=== PATIENT | male | born 1990 | race Caucasian/White ===

== ENCOUNTER 2024-11-16 22:09 | Emergency (ER) | payer BC, SELFPAY ==
--- NOTE | ~2024-11-16 | XR_ITS ---
CLINICAL HISTORY: low back pain 3 views lumbar spine Comparison: None Findings: Normal vertebral body alignment. No acute fractures or dislocation. No significant degenerative change. IMPRESSION: No acute findings. This document has been electronically signed by: Lukas Coker MD, PHD on 11/16/2024 23:10:47
[2024-11-16 22:39] VITALS: BP 136/76; PULSE 77; RESP 18; TEMP 36.8; O2SAT 96; BMI 30.1
--- NOTE | 2024-11-16 22:39 | ED_ITS ---
HPI - Back Pain/Injury General Chief Complaint: Extremity Injury, Lower Stated Complaint: rt side lower back pain down the leg Time Seen by Provider: 11/16/24 22:55 Source: patient and family Mode of arrival: ambulatory Limitations: no limitations History of Present Illness ED Provider: Viviana Matias PA-C HPI Narrative: 34-year-old male presents with right-sided low back pain. 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 Over the past month, he has been having intermittent right-sided low back pain with radiation down the right lower extremity at times. Over the past few days, the patient's symptoms have progressed, he is now developing paresthesia over lateral thigh. Denies weakness of lower extremities, urinary retention or bowel incontinence. Related Data Previous Rx's ?Medication ?Instructions ?Recorded lidocaine 5 % topical patch 2 patch topical DAILY PRN pain, 11/17/24 moderate #15 ea methocarbamol 750 mg tablet 1,500 mg (2 x 750 mg) PO Q8H PRN 11/17/24 pain, moderate #20 tabs methylprednisolone 4 mg tablets in 4 mg PO QAM #1 ea 11/17/24 a dose pack (Medrol (Jack)) Allergies Allergy/AdvReac Type Severity Reaction Status Date / Time ibuprofen Allergy Unknown Verified 11/16/24 22:43 Review of Systems Review of Systems: Constitutional : No Weight loss, No Fever, No Chills, ENT/Mouth : No Hearing loss, No Ear Pain, No Nasal Congestion, No Sinus Pain, No Hoarseness, No sore throat, No Rhinorrhea, No Swallowing Difficulty Cardiovascular : No Chest Pain, No SOB Respiratory : No Cough, No Dyspnea Gastrointestinal : No Nausea, No Vomiting, No Diarrhea, No abdominal Pain, No Hematochezia, No Melena Genitourinary : No Dysuria, No Urinary Frequency, No Hematuria, No Urinary Incontinence, Musculoskeletal : positive back pain Skin : No Skin Lesions, No rash Neuro : No Weakness, No Numbness, No Paresthesias, no loss of bowel or bladder incontinence, no saddle anesthesia all other systems reviewed and are negative Yes all other systems are reviewed and are negative Constitutional: Constitutional: Denies fatigue and Denies fever(s) Cardiovascular: Cardiovascular: Denies chest pain and Denies dyspnea Respiratory: Respiratory: Denies cough and Denies dyspnea Gastrointestinal: Gastrointestinal: Denies abdominal pain Musculoskeletal: Musculoskeletal: Reports back pain, Denies muscle weakness, Denies numbness, Reports radiating pain into limb and Reports tingling Neurologic: Denies numbness and Reports tingling Endocrine: Endocrine: Denies fatigue PMF Past Medical History Attestation statement: The following information was validated with the patient. Physical Exam Vital Signs: Vital Signs: Last Vital Signs Temp 98.2 F 11/16/24 22:39 Pulse 77 11/16/24 22:39 Resp 18 11/16/24 22:39 BP 136/76 11/16/24 22:39 Pulse Ox 96 11/16/24 22:39 O2 Del Method Room Air 11/16/24 22:39 BMI result Body Mass Index 30.1 Const: Other: Alert Orientation/consciousness: patient oriented x3 Resp: Effort & Inspection: normal respiratory effort Cardio: Other: Normal peripheral perfusion Skin: Other: Warm dry no rash Neuro: Other: Antalgic gait General: patient oriented x3, no focal motor deficits and CN's II-XI intact bilaterally Extrem: Other: Strength 5/5 bilateral lower extremity Psych: Other: Cooperative Course Course Course Narrative: 34 yo male with no PMH has had R intermittent thigh is numb at times. Denies trauma. He has severe R lower back pain that radiates down the leg. He has tried tylenol/motrin no relief. He has never seen a doctor for this in the past. No b/b incontinence, no saddle anesthesia, no IVDA, no thinners. At this time will obtain xray and likely start on medications for care. this is a RAPID medical screening exam the rest of the history and physical exam is to be done by the main provider. Medical Decision Making Medical Decision Making [facility] Narrative: 34-year-old male presents with right-sided low back pain. 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 Over the past month, he has been having intermittent right-sided low back pain with radiation down the right lower extremity at times. Over the past few days, the patient's symptoms have progressed, he is now developing paresthesia over lateral thigh. Denies weakness of lower extremities, urinary retention or bowel incontinence. Problem: Repetitive heavy lifting History: Per patient I have considered the following differential diagnoses: Lumbar strain, lumbar radiculopathy, cauda equina, compression fracture Plan: Patient here with symptoms of sciatica, without red flag signs symptoms concerning for cord compression. X-ray obtained from triage, is unremarkable. We will treat with an anti-inflammatory and muscle relaxant. The patient can follow up with his primary care provider. I have independently reviewed the following tests: X-ray lumbar spine:Findings: Normal vertebral body alignment. No acute fractures or dislocation. No significant degenerative change. IMPRESSION: No acute findings. This document has been electronically signed by: Lukas Coker MD, PHD on 11/16/2024 23:10:47 Discharge Plan Discharge Clinical Impression: Right lumbar radiculopathy Patient Disposition: Home, Self-Care Instructions: Lumbar Radiculopathy (ED) Additional Instructions: The x-ray of your back was normal. You are being treated for right-sided sciatica. See home care instructions. Use the Medrol Dosepak as directed, this is an anti-inflammatory, take in the morning. Use the methocarbamol, this is a muscle relaxant, as needed for further discomfort. To note this medication will cause drowsiness do not drive or operate machinery while taking the medication. Follow up with your primary care provider as needed. Prescriptions: New methocarbamol 750 mg tablet 1,500 mg PO Q8H PRN (Reason: pain, moderate) Qty: 20 0RF methylprednisolone [Medrol (Jack)] 4 mg tablets,dose pack 4 mg PO QAM Qty: 1 0RF lidocaine 5 % adhesive patch,medicated 2 patch topical DAILY PRN (Reason: pain, moderate) Qty: 15 0RF Rx Instructions: leave on most painful area for up to 12 hrs Stand Alone Forms: Work/School Release Print Language: Grenadian
[2024-11-17] MEDS: diazePAM 5 MG TABLET PO (00:34)
[2024-11-17] MEDS: Lidocaine 4 % Patch ADH..PATCH 1 PATCH TRANSDERMA (00:34)
[2024-11-17 00:52] VITALS: BP 136/76; PULSE 77; RESP 18; TEMP 36.8; O2SAT 96
== END 2024-11-17 00:54 | disposition home or self-care (01) ==
PROVIDERS: Emergency Provider Emergency Medicine; PCP Internal Medicine
DX: M54.16 Radiculopathy, lumbar region (principal); M54.50 Low back pain, unspecified
CPT/HCPCS: 72100; 99282; 99283

== ENCOUNTER → 2024-11-16 22:42 | Outpatient (BNV) | payer BC, SELFPAY | PROVIDERS: Emergency Provider Emergency Medicine; PCP Internal Medicine; Visit Provider General Practice | DX: M54.31 Sciatica, right side (principal) | CPT/HCPCS: 72100 ==

== ENCOUNTER 2024-12-09 14:42 | Emergency (ER) | payer OTHER, BC, SELFPAY ==
--- NOTE | ~2024-12-09 | CT_ITS ---
CLINICAL HISTORY: hit in head w metal pipe small lac noted CT head without contrast Comparison: None Findings: No intra-axial mass, midline shift, hydrocephalus, or acute hemorrhage. No significant atrophy-like change or white matter disease. There is no sinus or mastoid fluid. The orbits are unremarkable. No skull fracture. IMPRESSION: No skull fracture or intracranial hemorrhage. This document has been electronically signed by: Pricilla Serna MD on 12/09/2024 17:07:16
[2024-12-09 15:48] VITALS: BP 125/70; PULSE 75; RESP 20; TEMP 37; O2SAT 97; BMI 29.1
--- NOTE | 2024-12-09 16:27 | ED_ITS ---
HPI - General Adult General Chief complaint: Wound/Laceration Stated complaint: head lac @ work Time Seen by Provider: 12/09/24 17:26 Source: patient, RN notes reviewed and old records reviewed Mode of arrival: ambulatory Limitations: no limitations History of Present Illness ED Provider: Shahida [facility] narrative: Patient is a 34-year-old male presenting to the emergency department with complaint of head injury sustained while at work. States that he was accidentally hit in the head with a metal pipe, has a small laceration to frontal scalp. States his Tdap is up-to-date, was updated around 6 months ago for another work-related injury. Denies any loss of consciousness, visual changes, nausea or vomiting. Does complain of headache. He is not anticoagulated. MD complaint: head injury Onset (ago): hour(s) Location: head Related Data Previous Rx's ?Medication ?Instructions ?Recorded lidocaine 5 % topical patch 2 patch topical DAILY PRN pain, 11/17/24 moderate #15 ea methocarbamol 750 mg tablet 1,500 mg (2 x 750 mg) PO Q8H PRN 11/17/24 pain, moderate #20 tabs methylprednisolone 4 mg tablets in 4 mg PO QAM #1 ea 11/17/24 a dose pack (Medrol (Jack)) Allergies Allergy/AdvReac Type Severity Reaction Status Date / Time ibuprofen Allergy Unknown Verified 12/09/24 15:51 Review of Systems 2 Review of Systems: As per HPI Yes all other systems are reviewed and are negative Constitutional: Constitutional: Reports as per HPI Physical Exam ED Vital Signs: Vital Signs - 24 hr 12/09/24 15:48 12/09/24 17:28 Temperature 98.6 F 98.6 F Pulse Rate 75 70 Respiratory Rate 20 20 Blood Pressure 125/70 119/76 Pulse Oximetry 97 98 Oxygen Delivery Method Room Air Room Air BMI result Body Mass Index 29.1 Vital signs have been reviewed and appear to be correct. Blood pressure normal. Heart rate normal. Respiratory rate normal. Temperature normal. Oxygen saturation normal. Const General: cooperative, healthy appearing and no acute distress Orientation/consciousness: oriented to person, oriented to place, oriented to time and patient oriented x3 Limitations: no limitations HENMT Head: Yes normocephalic Head images: 2 1. superficial 1.5cm laceration to scalp without active bleeding, does not require repair Ears: external ears normal General nose exam: Normal external nose present Face and sinus: Yes face symmetric Mouth: oropharynx normal and moist mucous membranes Throat: Yes uvula midline Eyes Pupils: Equal, round and reactive pupils present Neck Neck: Yes normal visual inspection and Yes supple Resp Effort & Inspection: normal respiratory effort and able to speak in complete sentences Auscultation: clear to auscultation bilaterally Cardio Rate: regular rate Rhythm: regular rhythm Heart sounds: S1 normal heart sound present and S2 normal heart sound present GI Palpation (GI): Soft to palpation and nontender Auscultation: normoactive bowel sounds General: Yes no CVA tenderness Back/Spine/Pelvis Back: no CVA tenderness Skin General skin exam: elasticity normal and turgor normal Neuro General: oriented to person, oriented to place, oriented to time, patient oriented x3, gait normal, tone normal, moves all extremities, Normal light touch and pain sensation, no focal motor deficits, CN's II-XI intact bilaterally and deep tendon reflexes 2+ bilaterally Cranial nerves: Yes Equal, round and reactive pupils present Cognition (Neuro): normal cognition Motor exam (neuro): 5/5 motor strength present throughout, Normal motor muscle tone present throughout and Motor abnormalities not present Extrem General: Yes full ROM, Yes no pedal edema and Yes no calf tenderness Psych Mental Status: mental status grossly normal Affect: normal affect Thought process: Normal thought process present Course Course Course Narrative: This is a rapid medical exam performed by José Pinedo NP: Additional HPI, ROS, PE not included below will be deferred to primary provider. Patient is a 34-year-old male presenting to the emergency department with complaint of head injury sustained while at work. States that he was accidentally hit in the head with a metal pipe, has a small laceration to frontal scalp. States his Tdap is up-to-date, was updated around 6 months ago for another work-related injury. Denies any loss of consciousness, visual changes, nausea or vomiting. Does complain of headache. He is not anticoagulated. Laceration is superficial and does not require repair. Plan: CT head Medical Decision Making Medical Decision Making [facility] Narrative: Patient is a 34-year-old male presenting to the emergency department with complaint of head injury sustained while at work. On exam patient is awake, A+Ox3, VS WNL, afebrile, normal neurological exam without focal deficits, physical exam findings as above. Given reported symptoms and physical exam findings, initial differential includes but is not limited to scalp laceration, contusion, concussion, skull fracture. Less likely ICH. Will get CT head as injury occurred at work. CT notable for no evidence of ICH or skull fracture. My interpretation is in agreement with the radiologist's interpretation. Tdap UTD. Laceration is superficial and does not require repair. Wound care instructions discussed with patient. Follow up with PCP as needed. Return precautions discussed. Patient verbalized understanding of and agreement with plan. Differential Diagnosis Differential Diagnoses: The differential diagnosis associated with the presentation includes As per [facility] Independent Interpretation I performed an independent interpretation of an: CT Scan Interpretation: No ICH or skull fracture on CT head. Radiology Impression Discussion of test interpretation with radiology: I have reviewed the radiologist's reading. Radiologist Impression: CT head without contrast Comparison: None Findings: No intra-axial mass, midline shift, hydrocephalus, or acute hemorrhage. No significant atrophy-like change or white matter disease. There is no sinus or mastoid fluid. The orbits are unremarkable. No skull fracture. IMPRESSION: No skull fracture or intracranial hemorrhage. External Record Review External record reviewed: Inpatient record, Office record and Outpatient record Discharge Plan Discharge Clinical Impression: Laceration, Head injury, Superficial laceration of scalp Patient Disposition: Home, Self-Care Instructions: Head Injury (ED), Laceration Without Closure (ED) Additional Instructions: You have been evaluated in the emergency department today for head injury. Your CT scan did not show signs of bleed or fractures in your head. We recommend you take 600 mg ibuprofen every 6 hours or Tylenol 650 mg every 6 hours as needed for pain. If needed, you can alternate these medications so that you take 1 medication every 3 hours. For instance, at noon take ibuprofen, then at 3:00 p.m. take Tylenol, then at 6:00 p.m. take ibuprofen. Please schedule an appointment with for follow-up with your primary care provider as soon as possible. Return to the emergency department if you experience worsening or uncontrolled pain, vision changes, recurrent vomiting, difficulty with normal activities, abnormal behavior, difficulty walking, numbness, weakness, or any other concerning symptoms. Prescriptions: No Action methocarbamol 750 mg tablet 1,500 mg PO Q8H PRN (Reason: pain, moderate) Qty: 20 0RF methylprednisolone [Medrol (Jack)] 4 mg tablets,dose pack 4 mg PO QAM Qty: 1 0RF lidocaine 5 % adhesive patch,medicated 2 patch topical DAILY PRN (Reason: pain, moderate) Qty: 15 0RF Rx Instructions: leave on most painful area for up to 12 hrs Stand Alone Forms: Work/School Release Print Language: Ukrainian
[2024-12-09 17:28] VITALS: BP 119/76; PULSE 70; RESP 20; TEMP 37; O2SAT 98
[2024-12-09 17:42] VITALS: BP 119/76; PULSE 70; RESP 20; TEMP 37; O2SAT 98
== END 2024-12-09 17:44 | disposition home or self-care (01) ==
PROVIDERS: Emergency Provider Emergency Medicine
DX: S01.01XA Laceration without foreign body of scalp, initial encounter (principal); R51.9 Headache, unspecified; W26.9XXA Contact with unspecified sharp object(s), initial encounter; Y93.9 Activity, unspecified; Y92.9 Unspecified place or not applicable; Y99.0 Civilian activity done for income or pay
CPT/HCPCS: 70450; 99282; 99284

== ENCOUNTER → 2024-12-09 16:43 | Outpatient (BNV) | payer OTHER, BC, SELFPAY | PROVIDERS: Emergency Provider Emergency Medicine; Visit Provider Radiology Diagnostic Radiology | DX: S01.81XA Laceration without foreign body of other part of head, initial encounter (principal); W22.8XXA Striking against or struck by other objects, initial encounter | CPT/HCPCS: 70450 ==

== ENCOUNTER 2025-04-07 23:33 | Emergency (ER) | payer BC, SELFPAY ==
[2025-04-07 23:36] VITALS: BP 132/86; PULSE 64; RESP 16; TEMP 36.4; O2SAT 96; BMI 30.7
--- NOTE | 2025-04-08 01:20 | ED.EYEPROB ---
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 Tearing. Related Data Previous Rx's ?Medication ?Instructions ?Recorded lidocaine 5 % topical patch 2 patch topical DAILY PRN pain, 11/17/24 moderate #15 ea methocarbamol 750 mg tablet 1,500 mg (2 x 750 mg) PO Q8H PRN 11/17/24 pain, moderate #20 tabs methylprednisolone 4 mg tablets in 4 mg PO QAM #1 ea 11/17/24 a dose pack (Medrol (Jack)) erythromycin 5 mg/gram (0.5 %) eye 1 appl ophthalmic (eye) DAILY 7 04/08/25 ointment days #3.5 grams polymyxin B sulfate 10,000 1 drp ophthalmic (eye) Q3H 7 days 04/08/25 unit-trimethoprim 1 mg/mL eye drops #10 mL Allergies Allergy/AdvReac Type Severity Reaction Status Date / Time ibuprofen Allergy Unknown Verified 04/07/25 23:39 [facility] Social History Social History Advance Directives: No Advance Directives Information Provided: Yes Do you have a plan to hurt others: No Plan Physical Exam Vital Signs: Vital Signs: Last Vital Signs Temp 97.8 F 04/08/25 02:30 Pulse 55 04/08/25 02:30 Resp 16 04/08/25 02:30 BP 113/79 04/08/25 02:30 Pulse Ox 100 04/08/25 02:30 O2 Del Method Room Air 04/07/25 23:36 BMI result Body Mass Index 30.7 HEENT: Other: Left eye no hyphema or hypopyon no conjunctival injection. No periorbital trauma or swelling. There is a faint tiny submillimeter possible foreign body in the 04:00 location at the outer perimeter of the iris on the cornea. Medications Administered Discontinued Medications Generic Name Dose Route Start Last Admin Trade Name Freq PRN Reason Stop Dose Admin Diphtheria/Tetanus/Acell Pertussis 0.5 ml 04/08/25 01:19 04/08/25 02:28 Diphth,Pertus(Acell),Tet Adult 0.5 Ml Syringe IM 04/08/25 01:20 Not Given .ONCE ONE Erythromycin 1 cm 04/08/25 02:09 04/08/25 02:25 Erythromycin Base 0.5% Oph Oin 1 Gm Tube EYE-LEFT 04/08/25 02:10 1 cm ONCE ONE Administration Fluorescein Sodium 1 strip 04/08/25 01:19 04/08/25 01:44 Fluorescein Sodium Strip EYE-LEFT 04/08/25 01:20 Not Given ONCE ONE Tetracaine HCl 1 drop 04/08/25 01:19 04/08/25 01:45 Tetracaine Hcl 0.5% Oph Ceci 5 Ml Drops EYE-LEFT 04/08/25 01:20 Not Given ONCE ONE Procedures FB Removal Eye Location: eye (L) Foreign body: other (Suspected possible metal) Evidence of corneal penetration: No Technique: needle (27 gauge) Procedure performed under: direct visualization with magnification Post-procedure medication: ophthalmic antibiotic Patient tolerated procedure: well Complications: incomplete foreign body removal and residual rust ring Discharge Plan Discharge Clinical Impression: Corneal abrasion, Acute foreign body of cornea Patient Disposition: Home, Self-Care Instructions: Corneal Abrasion (DC), Eye Foreign Body (ED) Additional Instructions: DISCHARGE DIAGNOSES: Possible metallic foreign body of the eye, we feel this has fallen out on its own and your left with an abrasion or rust ring HISTORY OF PRESENTATION: ?Suspected foreign body with foreign body sensation of the left eye EMERGENCY DEPARTMENT COURSE,TESTS, TREATMENTS: While in the ED today in the emergency department you received a tetanus update you had a staining with fluorescein and a magnified evaluation of your cornea. There was no signs of rupture of your cornea or globe. We saw very very small possible foreign body the 04:00 location in the outer perimeter of your cornea and attempted with a needle-tip to remove this but eventually felt this was unlikely to be retained foreign body and possibly a rust ring or residual evidence of the previous metallic foreign body. We have given you erythromycin ointment and prescribed antibiotics see below DISCHARGE MEDICATIONS: ?Erythromycin ointment applied tonight, can be applied nightly small thin layer of the upper lid margin and antibiotic drops FOLLOW-UP: ?Call your primary or general physician soon as possible to discuss your symptoms, your ED visit and to discuss follow up plans First thing tomorrow morning call the ophthalmology office INSTRUCTIONS ?& RETURN PRECAUTIONS: If any symptoms change first call your primary physician, if it is after-hours your primary doctors office should have a provider director distribution you can speak with. If the symptoms are severe or very concerning to you then call 911 or return to the ED. Iain Josue MD Emergency Physician [facility] Prescriptions: New polymyxin B sulf-trimethoprim 10,000 unit- 1 mg/mL drops 1 drp ophthalmic (eye) Q3H 7 Days Qty: 10 0RF Rx Instructions: while awake; do not exceed 6 doses in 24 hours erythromycin 5 mg/gram (0.5 %) ointment 1 appl ophthalmic (eye) DAILY 7 Days Qty: 3.5 0RF No Action methocarbamol 750 mg tablet 1,500 mg PO Q8H PRN (Reason: pain, moderate) Qty: 20 0RF methylprednisolone [Medrol (Jack)] 4 mg tablets,dose pack 4 mg PO QAM Qty: 1 0RF lidocaine 5 % adhesive patch,medicated 2 patch topical DAILY PRN (Reason: pain, moderate) Qty: 15 0RF Rx Instructions: leave on most painful area for up to 12 hrs Referrals: Tone Colon [Physician, Ophthalmology] Referral Note: Call tomorrow 1st thing in the morning tell him we want you to be evaluated in the office right away Stand Alone Forms: Work/School Release Interventions: ED Discharge Assessment Last Done: 04/08/25 02:30 Discharge Date/Time: 04/08/25 02:31 Print Language: Malagasy
[2025-04-08] MEDS: Erythromycin Base 0.5% Oph Oin 1 GM TUBE 1 CM EYE-LEFT (02:25)
[2025-04-08 02:30] VITALS: BP 113/79; PULSE 55; RESP 16; TEMP 36.6; O2SAT 100
== END 2025-04-08 02:31 | disposition home or self-care (01) ==
PROVIDERS: Emergency Provider Emergency Medicine
DX: H57.8A2 Foreign body sensation, left eye (principal); S05.02XA Injury of conjunctiva and corneal abrasion without foreign body, left eye, initial encounter; X58.XXXA Exposure to other specified factors, initial encounter; Y93.89 Activity, other specified; Y92.89 Other specified places as the place of occurrence of the external cause; Y99.0 Civilian activity done for income or pay
CPT/HCPCS: 65220; 99284